=== PATIENT | female | born 1980 | race Hispanic/Latino ===

== ENCOUNTER 2023-10-23 23:44 | Emergency (ER) | payer BC, MEDICAID ==
[~2023-10-23] VITALS: Ht 157.5 cm; Wt 90.3 kg
[2023-10-23 23:46] VITALS: BP 119/67; PULSE 65; RESP 18
== END 2023-10-24 02:43 | disposition left against medical advice (07) ==
LOC: EDH 23:44
DX: M79.604 Pain in right leg (principal); Z53.21 Procedure and treatment not carried out due to patient leaving prior to being seen by health care provider